=== PATIENT | female | born 2000 | race Caucasian/White ===

== ENCOUNTER 2020-02-24 08:54 | Outpatient (CLI) | payer BC, OTHER ==
[2020-02-24 18:06] LABS: SARS-CoV-2 MS2 Positive; SARS-CoV-2 N Gene Negative; SARS-CoV-2 S Gene Negative; SARS-CoV-2 by NAA Not Detected (NotDetected); SARS-CoV-2 orf1ab Negative
== END 2020-02-24 08:55 | disposition home or self-care (01) ==
LOC: LABSCS 08:54
PROVIDERS: ATTEND Obstetrics & Gynecology
DX: Z20.828 Contact with and (suspected) exposure to other viral communicable diseases (principal)
CPT/HCPCS: 87635; U0003

== ENCOUNTER 2020-02-26 07:34 | Inpatient (IN) | payer BC, OTHER ==
[2020-02-26 08:20] VITALS: BMI 28.4
[2020-02-26 09:10] LABS: Amnisure Test RUPTURE DETECTED (No Rupture)
[2020-02-26 09:13] LABS: Amnisure Internal Control QC ACCEPTABLE (ACCEPTABLE)
[2020-02-26] MEDS ORDERED: Lidocaine 1% (PF) 30 ML VIAL SC PRN (10:13)
[2020-02-26] MEDS ORDERED: NS w/ Oxytocin 10 units 500 ML IV SCH (10:13)
[2020-02-26] MEDS ORDERED: hydrALAZINE 20 MG/ML VIAL SLOW IVP PRN (10:13)
[2020-02-26] MEDS ORDERED: NS / Oxytocin 40 units/1000ml 1,000 ML IV PRN (10:13)
[2020-02-26] MEDS ORDERED: Ondansetron PF 4 MG/2 ML Vial IVP PRN ×2 (10:13→12:43)
[2020-02-26] MEDS ORDERED: HYDROcodone/Acetaminophen 5/325 mg Tablet PO PRN ×2 (10:13)
[2020-02-26] MEDS ORDERED: Butorphanol Tartrate 1 MG/ML VIAL SLOW IVP PRN (10:13)
[2020-02-26] MEDS ORDERED: Lactated Ringer's 1,000 ML IV SCH (10:13)
[2020-02-26] MEDS ORDERED: Promethazine HCl 25 MG/ML VIAL IM PRN ×2 (10:13→12:43)
[2020-02-26] MEDS ORDERED: Ibuprofen 800 MG TAB PO PRN (10:13)
[2020-02-26 10:36] LABS: Hemoglobin 11.4 g/dL (12.0-16.0); Mean Corpuscular HGB CONC 33.7 g/dL (32.0-36.0); Mean Corpuscular Hemoglobin 28.2 pg (25.0-35.0); Mean Corpuscular Volume 83.7 fL (78.0-98.0); Mean Platelet Volume 8.9 fL (7.4-10.4); Platelet Count 237 thou/uL (130-400); RBC Distribution Width 13.2 % (11.5-14.5); Red Blood Cell (RBC) Count 4.04 mill/uL (4.00-5.20); White Blood Cell (WBC) Count 11.2 thou/uL (4.8-10.8)
[2020-02-26 11:11] LABS: HBSAg Index 0.18 S/CO (0-0.99); Hep B Surf Ag Non-Reactive S/CO (NonReactive); Syphilis Antibody Nonreactive (Nonreactive); Syphilis Antibody Index 0.02 S/CO (<1.00 Non-Reactive)
[2020-02-26] MEDS ORDERED: Fentanyl 4 mcg/Bup 0.1% Cadd 100 ML ONE ×3 (11:59→23:40)
[2020-02-26] MEDS: Lactated Ringer's 1,000 ML IV SCH ×4 (12:42→22:30)
[2020-02-26] MEDS ORDERED: Acetaminophen 325 MG TAB PO PRN (12:43)
[2020-02-26] MEDS ORDERED: EPHEDRINE 25 MG/5 ML SYRINGE SLOW IVP PRN (12:43)
[2020-02-26] MEDS ORDERED: Naloxone HCl 0.4 mg/ml Vial IVP PRN ×2 (12:43)
[2020-02-26] MEDS ORDERED: Lactated Ringer's 500 ML IV PRN (12:43)
[2020-02-26] MEDS ORDERED: diphenhydrAMINE 50 MG/ML VIAL IVP PRN (12:43)
[2020-02-26] MEDS ORDERED: Communication Order-Pharmacy FS SCH (12:45)
[2020-02-26] MEDS ORDERED: Lidocaine 2% MPF 10 ML AMP (For Epidural Use) ONE (13:57)
[2020-02-26] MEDS ORDERED: Bupivacaine HCl 0.5%/Epinephrine 1:200,000/PF 30 ml Vial ONE (13:57)
[2020-02-26] MEDS ORDERED: Bupivacaine 0.25% HCL 30 ML VIAL ONE (13:57)
[2020-02-26] MEDS ORDERED: Lidocaine 1% PF 5 ML VIAL ONE (17:29)
[2020-02-26] MEDS ORDERED: Lidocaine 1.5%/Epinephrine 1:200,000 5 ML AMPUL IJ ONE (17:29)
[2020-02-26] MEDS: Fentanyl 4 mcg/Bupivacaine 0.1% Cassette 100 ML EPIDURAL SCH ×2 (18:38→23:45)
[2020-02-26] MEDS ORDERED: Lidocaine 1% (PF) 30 ML VIAL ONE (23:56)
[2020-02-26] MEDS ORDERED: NS / Oxytocin 40 units/1000ml 1,000 ML ONE (23:56)
[2020-02-27] MEDS ORDERED: Lidocaine 2% 10 ML INJ ONE (00:05)
--- NOTE | 2020-02-27 00:59 | PDOC.OPDEL ---
OB Operative/Delivery Note Delivery Dr/Surgeon: Paula Pre-Delivery Diagnosis: active labor Procedure/Post Delivery Dx: spontaneous vaginal delivery Weeks gestation: 41 Anesthesia: epidural - Findings A Sex: female - 1 min: 8 - 5 min: 9 - Additional Findings/Plan Placenta delivered: spontaneous Repaired Obstetrical Laceration: 2nd degree (right labial perurethral repaired also 3-0 chromic.)
[2020-02-27] MEDS ORDERED: hydrALAZINE 20 MG/ML VIAL SLOW IVP PRN (01:00)
[2020-02-27] MEDS ORDERED: NS / Oxytocin 40 units/1000ml 1,000 ML IV SCH (01:00)
[2020-02-27] MEDS ORDERED: Misoprostol 200 MCG TAB VAG PRN (01:00)
[2020-02-27] MEDS ORDERED: Milk Of Magnesia 30 ML UDCUP PO PRN (01:00)
[2020-02-27] MEDS ORDERED: Lanolin Ointment 7 GM TUBE TOP PRN (01:00)
[2020-02-27] MEDS ORDERED: Preparation H Ointment 28 GM TUBE PR PRN (01:00)
[2020-02-27] MEDS ORDERED: Benzocaine-Menthol 82.5 ML CAN TOP PRN (01:00)
[2020-02-27] MEDS ORDERED: traMADol HCl 50 MG TAB PO PRN ×2 (01:00→07:23)
[2020-02-27] MEDS ORDERED: Bisacodyl 10 MG SUPP PR PRN (01:00)
[2020-02-27] MEDS: Ibuprofen 800 MG TAB PO SCH ×3 (06:38→21:24)
--- NOTE | 2020-02-27 07:27 | PDOC.PP ---
Post Progress Note Post Day #: 0-1 PO intake tolerated: yes Flatus: yes Ambulation: yes Vital Signs (12 hours) Temp Pulse Resp BP Pulse Ox 02/27/20 05:30 98.2 F 74 18 124/69 02/27/20 04:10 98.0 F 63 18 126/60 02/27/20 03:11 99.1 F 73 18 119/60 97 Weight Weight 171 lb - Physical Examination Abdominal: + bowel sounds, lochia, no distention, appropriately TTP Extremities: negative homans (B) Result Diagrams: 02/26/20 10:18 Additional Labs: Post Labs Blood Type O POSITIVE 02/26/20 10:57 Hep Bs Antigen Non-Reactive S/CO (NonReactive) 02/26/20 10:18 - Assessment/Plan Doing well. day 0-1... Routine care. Anticipate discharge 02/27.
[2020-02-27] MEDS ORDERED: Adacel (T-DAP) 0.5 ML SYRINGE IM ONE (09:00)
[2020-02-27] MEDS: Docusate Calcium (SURFAK) 240 MG CAP PO SCH ×2 (09:50→21:24)
[2020-02-27] MEDS: Prenatal Vitamin 1 TAB PO SCH (09:50)
[2020-02-27] MEDS: Ferrous Sulfate 325 MG TAB PO SCH ×2 (11:09→18:36)
[2020-02-28] MEDS: Ibuprofen 800 MG TAB PO SCH (05:59)
[2020-02-28 08:21] VITALS: BP 113/61; TEMP 98.3
[2020-02-28] MEDS: Prenatal Vitamin 1 TAB PO SCH (09:43)
[2020-02-28] MEDS: Docusate Calcium (SURFAK) 240 MG CAP PO SCH (09:43)
[2020-02-28] MEDS: Ferrous Sulfate 325 MG TAB PO SCH (09:43)
== END 2020-02-28 12:35 | disposition home or self-care (01) | DRG 807 ==
LOC: L&D/OP 07:34 → L&D 10:14 → 3SW 02-27 03:38
PROVIDERS: ADMIT Obstetrics & Gynecology; ATTEND Obstetrics & Gynecology
PROC: 3E033VJ Introduction of Other Hormone into Peripheral Vein, Percutaneous Approach (ICD-10-PCS; 2020-02-26)
PROC: 10E0XZZ Delivery of Products of Conception, External Approach (ICD-10-PCS; principal; 2020-02-27)
PROC: 0KQM0ZZ Repair Perineum Muscle, Open Approach (ICD-10-PCS; 2020-02-27)
DX: O70.1 Second degree perineal laceration during delivery (principal); Z37.0 Single live birth; Z3A.41 41 weeks gestation of pregnancy; O71.82 Other specified trauma to perineum and vulva
CPT/HCPCS: 36415; 51702; 84112; 85027; 86780; 86850; 86900; 86901; 87340; 87635; 99285; J0670; J2001; J2590; J3490; S0020; U0003

== ENCOUNTER 2022-04-05 08:49 | Outpatient (CLI) | payer BC | END 2022-04-05 08:50 | disposition home or self-care (01) | LOC: BICULT 08:49 | PROVIDERS: ATTEND Obstetrics & Gynecology | DX: N63.20 Unspecified lump in the left breast, unspecified quadrant (principal) ==